=== PATIENT | male | born 1980 | race Caucasian/White ===

== ENCOUNTER 2018-11-24 23:19 | Emergency (ER) | payer OTHER ==
[~2018-11-24] VITALS: Ht 170.2 cm; Wt 68.0 kg
[2018-11-25] MEDS ORDERED: AUGMENTIN 500-1 EACH PO (00:18)
[2018-11-25] MEDS ORDERED: ACETAMINOPHEN-1 EAC2 PO (00:18)
[2018-11-25] MEDS ORDERED: IBUPROFEN 800800 MG PO (00:18)
[2018-11-25 00:26] VITALS: BP 128/79
== END 2018-11-25 00:26 | disposition home or self-care (01) ==
LOC: M.ERS 23:19
DX: K04.7 Periapical abscess without sinus (principal); Z88.6 Allergy status to analgesic agent